=== PATIENT | male | born 1955 | race Caucasian/White ===

== ENCOUNTER 2017-04-14 22:43 | Emergency (ER) | payer OTHER ==
[2017-04-14 22:48] VITALS: BMI 33.5
[2017-04-14] MEDS ORDERED: morphine CARPU-JECT 4 MG/1 ML DISP.SYRIN IVPUSH ONE (23:31)
[2017-04-14] MEDS ORDERED: ONDANSETRON 4 MG/2 ML VIAL IVPUSH ONE (23:31)
--- NOTE | 2017-04-14 23:38 | PDOC ---
History of Present Illness - General History Source: Patient, Old Records Exam Limitations: No Limitations - History of Present Illness Initial Comments: 04/14/17 23:39 The patient is a 62 year old male, with a significant past medical history of diabetes and kidney stones, who presents to the emergency department with right flank pain for the past 3 days. He describes his pain as ranging from mild to moderate, without radiation. He notes that the pain as progressively worsened. He also reports fever and nausea associated with his chief complaint. He reports that there has been to change to his urine or bowel movements. The patient does have an extensive history of Lithotripsy and kidney stents. The patient denies chest pain, shortness of breath, headache and dizziness. Denies fever, chills, vomit, diarrhea and constipation. Denies dysuria, frequency, urgency and hematuria. Allergies: None Past surgical history: Kidney stents Social history: No alcohol, tobacco or drug reported <Federico Yap - Last Filed: 04/14/17 23:38> - General History Source: Patient Exam Limitations: No Limitations <Yamilet Pierce - Last Filed: 04/15/17 02:21> - General Chief Complaint: Nausea/Vomiting Stated Complaint: STOMACH PAIN Past History <Federico Yap - Last Filed: 04/14/17 23:38> - Past Medical History Diabetes: Yes Kidney Stones: Yes - Surgical History Cardiac Surgery: Yes - Immunization History Immunization Up to Date: Yes - Psycho/Social/Smoking Cessation Hx Anxiety: No Suicidal Ideation: No Smoking History: Never smoked Have you smoked in the past 12 months: No Information on smoking cessation initiated: No Hx Alcohol Use: No Drug/Substance Use Hx: No Substance Use Type: None <Yamilet Pierce - Last Filed: 04/15/17 02:21> - Past Medical History Allergies/Adverse Reactions: Allergies Allergy/AdvReac Type Severity Reaction Status Date / Time No Known Allergies Allergy Verified 04/14/17 22:48 Home Medications: Ambulatory Orders Allopurinol 300 mg PO DAILY 11/22/15 Aspirin [ASA -] 81 mg PO DAILY 11/22/15 Atorvastatin Ca [Lipitor -] 20 mg PO DAILY 11/22/15 Canagliflozin [Invokana] 300 mg PO DAILY 11/22/15 Cholecalciferol (Vitamin D3) [Vitamin D-3] 2,000 unit PO DAILY 11/22/15 Furosemide [Lasix -] 20 mg PO DAILY 11/22/15 Losartan 50Mg/Hctz 12.5MG [Hyzaar -] 1 tab PO DAILY 11/22/15 Metformin HCl 500 mg PO BID 11/22/15 Metoprolol Succinate [Toprol Xl] 50 mg PO DAILY 11/22/15 Nifedipine ER [Procardia Xl -] 30 mg PO DAILY 11/22/15 Omeprazole 20 mg PO DAILY 11/22/15 Potassium Chloride 10 meq PO DAILY 11/22/15 Tamsulosin HCl 0.4 mg PO DAILY 11/22/15 Review of Systems - Review of Systems Able to Perform ROS?: Yes Comments:: 04/14/17 23:39 GENERAL/CONSTITUTIONAL: No fever or chills. No weakness. HEAD, EYES, EARS, NOSE AND THROAT: No change in vision. No ear pain or discharge. No sore throat. CARDIOVASCULAR: No chest pain or shortness of breath RESPIRATORY: No cough, wheezing, or hemoptysis. GASTROINTESTINAL: No nausea, vomiting, diarrhea or constipation. GENITOURINARY: (+) Right flank pain. No dysuria, frequency, or change in urination. MUSCULOSKELETAL: No joint or muscle swelling or pain. No neck or back pain. SKIN: No rash NEUROLOGIC: No headache, vertigo, loss of consciousness, or change in strength/ sensation. ENDOCRINE: No increased thirst. No abnormal weight change HEMATOLOGIC/LYMPHATIC: No anemia, easy bleeding, or history of blood clots. ALLERGIC/IMMUNOLOGIC: No hives or skin allergy. <Federico Yap - Last Filed: 04/14/17 23:38> *Physical Exam - Vital Signs Last Vital Signs Temp Pulse Resp BP Pulse Ox 97.6 F 90 18 154/79 98 04/14/17 22:44 04/14/17 22:44 04/14/17 22:44 04/14/17 22:44 04/14/17 22:44 - Physical Exam Comments: 04/14/17 23:39 GENERAL: Awake, alert, and fully oriented, in no acute distress HEAD: No signs of trauma, normocephalic, atraumatic EYES: PERRLA, EOMI, sclera anicteric, conjunctiva clear ENT: Auricles normal inspection, hearing grossly normal, nares patent, oropharynx clear without exudates. Moist mucosa NECK: Normal ROM, supple, no lymphadenopathy, JVD, or masses LUNGS: No distress, speaks full sentences, clear to auscultation bilaterally HEART: Regular rate and rhythm, normal S1 and S2, no murmurs, rubs or gallops, peripheral pulses normal and equal bilaterally. ABDOMEN: (+) Suprapubic tenderness and right CVA tenderness. Soft, normoactive bowel sounds. No guarding, no rebound. No masses EXTREMITIES: Normal inspection, Normal range of motion, no edema. No clubbing or cyanosis. Warm and well perfused. NEUROLOGICAL: A&O X3. SKIN: Warm, Dry, normal turgor, no rashes or lesions noted. <Federico Yap - Last Filed: 04/14/17 23:38> - Vital Signs Last Vital Signs Temp Pulse Resp BP Pulse Ox 97.6 F 90 18 154/79 98 04/14/17 22:44 04/14/17 22:44 04/14/17 22:44 04/14/17 22:44 04/14/17 22:44 <Yamilet Pierce - Last Filed: 04/15/17 02:21> ED Treatment Course - LABORATORY CBC & Chemistry Diagram: 04/15/17 00:01 04/14/17 23:50 - RADIOLOGY Radiology Studies Ordered: Category Date Time Status SPIRAL- RENAL-STONE CT [CT] Stat CT Scan 04/14/17 23:30 Ordered <Yamilet Pierce - Last Filed: 04/15/17 02:21> Medical Decision Making - Medical Decision Making 04/14/17 23:36 62 yo M with /ho renal colic, DM prior lithotripsy and stents a year ago, here today c/o 5 days right flank and abd pain. feels like similar stones. does have nausea, no vomiting. no dysuria, no hematuria. no fever but subjective chills. no change to stool. pain constant. does have a urologist. has not been evaluated this time for this pain. on exam awake alert lungs clear. heart RRR no mrg. abd soft. pos suprapubic ttp , no rebound no guarding. right CVA tenderness. skin warmand dry. nuero alert oriented x 3 differential uti pyelo renal colic. plan labs ua pain control ct a/p 04/15/17 02:[address] wihtout stone, mild change right kidney. no fever, ua negative. pt without dysuria. possible passed a stone. states feeling better. told to follow up with dr. little, urologist. dc home. <Yamilet Pierce - Last Filed: 04/15/17 02:21> *DC/Admit/Observation/Transfer - Attestations Scribe Attestion: 04/14/17 23:39 Documentation prepared by Federico Yap, acting as medical assisting instructor for Yamilet Pierce MD <Federico Yap - Last Filed: 04/14/17 23:38> - Discharge Dispostion Admit: No <Yamilet Pierce - Last Filed: 04/15/17 02:21> Diagnosis at time of Disposition: Kidney stone on right side, Back pain - Discharge Dispostion Disposition: HOME Condition at time of disposition: Improved - Referrals Referrals: Adi Little MD [Primary Care Provider] - - Patient Instructions Printed Discharge Instructions: Low Back Pain Additional Instructions: you can take motrin 400 mg every 8 hours as needed for pain. follow up with your urologist. dr. Martinez Little, call to schedule. return for vomiting, fever, worsening pain or any concerns. Print Language: [place]
[2017-04-15 00:07] LABS: MCH 29.7 pg (25.7-33.7); MCHC 33.3 g/dl (32.0-35.9); MEAN CELL VOLUME 89.3 fl (80-96); MEAN PLT VOLUME 10.3 fl (7.5-11.1); PLATELET COUNT 123 K/MM3 (134-434); RDW 14.3 % (11.9-15.9)
[2017-04-15] MEDS ORDERED: morphine CARPU-JECT 4 MG/1 ML DISP.SYRIN ONE (00:07)
[2017-04-15] MEDS ORDERED: ONDANSETRON 4 MG/2 ML VIAL ONE (00:07)
[2017-04-15 00:47] LABS: ALBUMIN 3.4 g/dl (3.4-5.0); ALK PHOS 94 U/L (45-117); ANION GAP 12 (8-16); BILIRUBIN,TOTAL 0.6 mg/dL (0.2-1.0); CALCIUM 8.5 mg/dL (8.5-10.1); CO2 28 mmol/L (21-32); CREATININE 1.1 mg/dL (0.7-1.3); GLUCOSE,RANDOM 195 mg/dL (74-106); SGOT/AST 22 U/L (15-37); SGPT/ALT 36 U/L (12-78); TOT PROT 6.5 g/dl (6.4-8.2)
[2017-04-15 00:52] LABS: PH,URINE 5.5 (5.0-8.0); URINE APPEARANCE CLEAR; URINE BILIRUBIN NEGATIVE (NEGATIVE); URINE BLOOD NEGATIVE (NEGATIVE); URINE COLOR LT. YELLOW; URINE GLUCOSE (UA) 3+ (NEGATIVE); URINE KETONE NEGATIVE (NEGATIVE); URINE LEUK ESTERASE NEGATIVE (NEGATIVE); URINE NITRITE NEGATIVE (NEGATIVE); URINE PROTEIN NEGATIVE (NEGATIVE); URINE UROBILINOGEN 0.2 mg/dL (0.2-1.0)
[2017-04-15] MEDS ORDERED: KETOROLAC TROMETHAMINE 30 MG/1 ML VIAL IVPUSH ONE (02:10)
[2017-04-15] MEDS ORDERED: KETOROLAC TROMETHAMINE 30 MG/1 ML VIAL ONE (02:22)
[2017-04-15 02:45] VITALS: BP 128/58; PULSE 88; TEMP 97.8
[2017-04-15 03:25] LABS: BASOPHIL 0.9 % (0-2.0); NEUTROPHILS 36.2 % (42.8-82.8)
== END 2017-04-15 02:40 | disposition home or self-care (01) ==
LOC: JER 22:43
PROC: 3E0333Z Introduction of Anti-inflammatory into Peripheral Vein, Percutaneous Approach (ICD-10-PCS; principal; 2017-04-14)
PROC: 3E033NZ Introduction of Analgesics, Hypnotics, Sedatives into Peripheral Vein, Percutaneous Approach (ICD-10-PCS; 2017-04-14)
PROC: 3E033GC Introduction of Other Therapeutic Substance into Peripheral Vein, Percutaneous Approach (ICD-10-PCS; 2017-04-14)
DX: N23 Unspecified renal colic (principal); E11.9 Type 2 diabetes mellitus without complications
CPT/HCPCS: 36415; 74176; 80053; 81003; 85025; 99283-25

== ENCOUNTER 2021-06-27 14:47 | Emergency (ER) | payer OTHER ==
[2021-06-27 15:01] VITALS: BP 132/78; PULSE 90; TEMP 98.3; BMI 31.8
[2021-06-27 18:23] LABS: BASO % 2.3 % (0-2.0); EOS % 6.8 % (0-4.5); HEMATOCRIT 42.3 % (35.4-49); HEMOGLOBIN 14.6 GM/dL (11.7-16.9); LYMPH % 28.6 % (8-40); MCH 30.3 pg (25.7-33.7); MCHC 34.6 g/dl (32.0-35.9); MEAN CELL VOLUME 87.5 fl (80-96); MEAN PLT VOLUME 9.3 fl (7.5-11.1); MONO % 6.6 % (3.8-10.2); NEUT % 55.7 % (42.8-82.8); PLATELET COUNT 183 10^3/uL (134-434); RBC 4.83 M/mm3 (4.00-5.60); WHITE BLOOD COUNT 5.2 K/mm3 (4.0-10.0)
[2021-06-27 18:38] LABS: CALCIUM 9.2 mg/dL (8.5-10.1)
[2021-06-27 18:39] LABS: ALBUMIN 3.6 g/dl (3.4-5.0); BLOOD UREA NITROGEN 18.1 mg/dL (7-18)
[2021-06-27 18:42] LABS: CREATININE 0.8 mg/dL (0.55-1.3)
[2021-06-27 18:44] LABS: BILIRUBIN,TOTAL 0.5 mg/dL (0.2-1); TOT PROT 7.2 g/dl (6.4-8.2)
== END 2021-06-27 20:24 | disposition home or self-care (01) ==
LOC: JER 14:47
DX: R42 Dizziness and giddiness (principal)
CPT/HCPCS: 36415; 80053; 85025; 93005; 93010; 99283-25

== ENCOUNTER 2025-05-21 00:54 | Emergency (ER) | payer OTHER ==
[2025-05-21 01:17] VITALS: BMI 26.4
[2025-05-21 01:46] LABS: ABSOLUTE IMMATURE GRANULOCYTES 0.05 x10^3/uL (0.0-0.031); BASOPHILS # 0.09 x10^3/uL (0.01-0.08); EOSINOPHIL % 1.5 % (0.8-7.0); EOSINOPHILS # 0.11 x10^3/uL (0.04-0.54); MCHC 33.6 g/dl (32.3-36.5); MEAN CELL VOLUME 90.4 fl (79.0-92.2); MEAN PLT VOLUME 11.8 fl (9.4-12.4); MONOCYTE # 0.69 x10^3/uL (0.30-0.82); MONOCYTE % 9.6 % (5.3-12.2); RDW 13.2 % (12.2-16.4)
[2025-05-21] MEDS ORDERED: ACETAMINOPHEN INJECTION 100 ML ONE (01:53)
[2025-05-21 01:55] LABS: INR 1.4 (0.83-1.09); PROTHROMBIN TIME (PATIENT) 15.4 SEC (9.7-13.0)
[2025-05-21 01:58] LABS: ACTIVATED PTT 37.2 SECONDS (25.2-36.5)
[2025-05-21] MEDS: ACETAMINOPHEN 1000 MG/100 ML BAG IVPB ONE (02:01)
[2025-05-21] MEDS: SODIUM CHLORIDE 0.9% 500 ML INFUS.BAG IV ONE (02:01)
[2025-05-21 02:08] LABS: GLUCOSE,RANDOM 142.0 mg/dL (74-106); TOT PROT 8.1 g/dl (6.4-8.2)
[2025-05-21 02:09] LABS: CO2 25.0 mmol/L (21-32)
[2025-05-21 02:11] LABS: ALK PHOS 104.0 U/L (40-150)
[2025-05-21 02:14] LABS: CREATININE 1.69 mg/dL (0.55-1.3); SGOT/AST 26.0 U/L (5-34); SGPT/ALT 16.0 U/L (0-55)
[2025-05-21 02:15] LABS: LACTIC ACID 3.5 mmol/L (0.4-2.0)
[2025-05-21] MEDS ORDERED: MAGNESIUM SULFATE IN WATER 2 GM/50 ML IVPB IVPB ONE (02:27)
[2025-05-21] MEDS: MAGNESIUM SULFATE IN WATER 2 GM/50 ML IVPB IVPB ONE (02:30)
[2025-05-21 02:56] VITALS: BP 114/71
[2025-05-21 03:08] LABS: HCV DIAGNOSTIC IN-HOUSE W/RFLX NON-REACTIVE (NONREACTIVE); HIV INTERPRETATION NEGATIVE (NEGATIVE)
[2025-05-21 03:27] VITALS: PULSE 85; RESP 13; TEMP 97.8
== END 2025-05-21 03:51 | disposition short-term general hospital (02) ==
LOC: JER 00:54
PROC: 3E033GC Introduction of Other Therapeutic Substance into Peripheral Vein, Percutaneous Approach (ICD-10-PCS; principal; 2025-05-21)
PROC: 3E033NZ Introduction of Analgesics, Hypnotics, Sedatives into Peripheral Vein, Percutaneous Approach (ICD-10-PCS; 2025-05-21)
DX: I47.20 Ventricular tachycardia, unspecified (principal); R07.89 Other chest pain; R53.1 Weakness; R53.81 Other malaise; R11.0 Nausea; R06.00 Dyspnea, unspecified; R63.8 Other symptoms and signs concerning food and fluid intake; R10.9 Unspecified abdominal pain
CPT/HCPCS: 36415; 71045-TC-FY; 80053; 83605; 83690; 83735; 84100; 84484; 85025; 85610; 85730; 86803; 86850; 86900; 86901; 87389; 87637-QW; 93005; 93010; 99285-25